=== PATIENT | female | born 1950 | race Hispanic/Latino ===

== ENCOUNTER 2018-10-27 22:23 | Observation (INO) | payer OTHER ==
[~2018-10-27] VITALS: Ht 162.6 cm; Wt 103.6 kg
[2018-10-27] MEDS ORDERED: DILTIAZEM HCL 5 MG/ML 10 ML VIAL IV ONE ×2 (22:37→22:49)
[2018-10-27 22:47] LABS: BASOPHILS % (AUTO) 0.8 % (0.0-5.0); EOSINOPHILS % (AUTO) 3.3 % (0.0-8.0); HEMATOCRIT 41.5 % (36-48); LYMPHOCYTES % (AUTO) 38.4 % (21.0-51.0); MEAN CORPUSCULAR HEMOGLOBIN 29.1 pg (27.0-33.0); MEAN CORPUSCULAR HGB CONC 34.1 g/dL (32.0-36.0); MEAN CORPUSCULAR VOLUME 85.3 fL (79-99); MONOCYTES % (AUTO) 12.9 % (3.0-13.0); NEUTROPHILS % (AUTO) 44.6 % (40.0-77.0); NUCLEATED RED BLOOD CELLS 0.1 % (0.0-0.19); PLATELET COUNT (AUTO) 255 K/uL (130-400); RED BLOOD CELL COUNT(AUTO) 4.86 MIL/uL (4.00-5.50); RED CELL DISTRIBUTION WIDTH 14.3 % (11.0-15.5); WHITE BLOOD COUNT (AUTO) 7.6 K/uL (4.8-10.8)
[2018-10-27] MEDS ORDERED: SODIUM CHLORIDE 0.9% 100 ML IV ONE (22:49)
[2018-10-27 23:00] LABS: CREATININE 0.8 mg/dL (0.5-1.5); POTASSIUM 4.3 mmol/L (3.5-5.1)
[2018-10-27 23:02] LABS: APPEARANCE,URINE Clear (CLEAR); BILIRUBIN,URINE Negative (NEGATIVE); COLOR,URINE Yellow (YELLOW); GLUCOSE, URINE (UA) TRACE mg/dL (NEGATIVE); KETONES,URINE Negative (NEGATIVE); LEUKOCYTE ESTERASE ,URINE Small (NEGATIVE); NITRATE,URINE Negative (NEGATIVE); OCCULT BLOOD,URINE Negative (NEGATIVE); PH,URINE 7.5 (5.0-8.0); PROTEIN,URINE Negative (NEGATIVE); UROBILINOGEN,URINE 0.2 mg/dL (0.2-1.0)
[2018-10-27 23:13] LABS: ALBUMIN 3.8 g/dL (3.5-5.0); BILIRUBIN,TOTAL 0.2 mg/dL (0.2-1.0); MAGNESIUM 1.9 mg/dL (1.80-2.40); THYROID STIMULATING HORMONE 2.65 uIU/mL (0.36-3.74)
[2018-10-27 23:18] LABS: BACTERIA,URINE None Seen /HPF (None Seen); RBC,URINE None Seen /HPF (0-1); SQUAMOUS EPITHELIAL CELL,UR Few /HPF (0-2); WBC,URINE 0-1 /HPF (0-1)
[2018-10-28] MEDS ORDERED: DILTIAZEM HCL 5 MG/ML 10 ML VIAL IV ONE (00:58)
[2018-10-28] MEDS ORDERED: SODIUM CHLORIDE 0.9% 1000ML 1,000 ML IV ONE (02:16)
[2018-10-28] MEDS ORDERED: DIGOXIN 250 MCG/ML 2ML AMP ONE (02:16)
[2018-10-28] MEDS ORDERED: SODIUM CHLORIDE 0.9% 500ML 500 ML IV ONE (03:54)
[2018-10-28] MEDS ORDERED: JANUMET PO SCH (08:00)
[2018-10-28] MEDS: TOUJEO SQ SCH (09:00)
[2018-10-28] MEDS: CALCIUM 600 + VITAMIN D 400 TABLET PO SCH (09:42)
[2018-10-28] MEDS: FISH OIL 1000 MG/CAP PO SCH (09:42)
[2018-10-28] MEDS: FE FUMARATE/FA/MV, MIN COMB#15 1 TAB PO SCH (09:42)
[2018-10-28] MEDS: ASPIRIN 81 MG EC TAB PO SCH (09:42)
[2018-10-28 10:18] LABS: CREATINE KINASE, TOTAL 38 U/L (21-232); MYOGLOBIN 31 ng/mL (10-92); TROPONIN I < 0.04 ng/mL (0.00-0.06)
--- NOTE | 2018-10-28 12:49 | NUR ---
WALKS WITHOUT ANY DIFFICULTY Addendum: 10/28/18 at 1305 by YANNA MANZANARSE RN RN Amended: Links added.
[2018-10-28 12:58] VITALS: BP 136/58
--- NOTE | 2018-10-28 13:01 | NUR ---
PT HAS CELLPHONE, PURSE, ID AND WALLET. PT ALLOW HAS HER CLOTHES, GLASSES Addendum: 10/28/18 at 1305 by YANNA MANZANARES RN RN Amended: Links added.
[2018-10-28 16:00] VITALS: BP 124/54
--- NOTE | 2018-10-28 16:00 | NUR ---
RECEIVED FROM ED VIA STRETCHER ACCOMPANIED BY LATANYA BRICEÑO. PT. [id number], RESP.'S EVEN AND UNLABORED. PLEASANT, LAUGHING. TALKATIVE. DENIES ANY C/O AT THIS TIME. COMPLETE ASSESSMENT DONE. CALL LIGHT WITHIN REACH.
[2018-10-28] MEDS: SITAGLIPTIN PO SCH (17:00)
[2018-10-28] MEDS: METFORMIN PO SCH (17:00)
--- NOTE | 2018-10-28 17:00 | NUR ---
SITTING UP IN BED EATING DINNER W/O C/O. CALL LIGHT WITHIN REACH.
[2018-10-28] MEDS ORDERED: PHARMACY COMMUNICATION MISC SCH (17:15)
[2018-10-28 19:24] VITALS: BP 144/63
[2018-10-28] MEDS ORDERED: ATORVASTATIN CALCIUM 10 MG TABLET PO SCH (21:00)
[2018-10-28 23:35] VITALS: BP 144/71
[2018-10-29 03:59] VITALS: BP 140/71
[2018-10-29 07:43] VITALS: BP 135/68
[2018-10-29] MEDS ORDERED: AEC81 PO (08:10)
[2018-10-29] MEDS ORDERED: UBID50CA23 PO (08:10)
[2018-10-29] MEDS ORDERED: METO-409 PO (08:10)
[2018-10-29] MEDS ORDERED: CALC-910 PO (08:10)
[2018-10-29] MEDS ORDERED: CYAN100099 PO (08:10)
[2018-10-29] MEDS ORDERED: MULT-1250 PO (08:10)
[2018-10-29] MEDS ORDERED: ROSU5TAB11 PO (08:10)
[2018-10-29] MEDS ORDERED: PYRI200T10 PO (08:10)
[2018-10-29] MEDS ORDERED: INSU300I SQ (08:10)
[2018-10-29] MEDS ORDERED: OMEG-125 PO (08:10)
[2018-10-29] MEDS: ASPIRIN 81 MG EC TAB PO SCH (09:40)
[2018-10-29] MEDS: CALCIUM 600 + VITAMIN D 400 TABLET PO SCH (09:40)
[2018-10-29] MEDS: FISH OIL 1000 MG/CAP PO SCH (09:40)
[2018-10-29] MEDS: FE FUMARATE/FA/MV, MIN COMB#15 1 TAB PO SCH (09:45)
[2018-10-29] MEDS: METFORMIN PO SCH (09:46)
[2018-10-29] MEDS: SITAGLIPTIN PO SCH (09:46)
[2018-10-29] MEDS: TOUJEO SQ SCH (09:47)
[2018-10-29 11:31] VITALS: BP 129/74
--- NOTE | 2018-10-29 11:48 | NUR ---
PT CARE Spoke to by phone at 1120 - MD advised of consult and updated on pt's status, plan of care and current med regimen. Orders received. Proposed plan of care explained to pt. Pt wishes to be discharged. Once again, MD updated by phone regarding pt's decision to proceed with discharge. Orders received - refer to EMR.
[2018-10-29] MEDS ORDERED: RIVA20TA PO (11:59)
[2018-10-29] MEDS ORDERED: METO-391 PO (12:00)
--- NOTE | 2018-10-29 12:46 | NUR ---
DISCHARGE MEDICATIONS As per , prescription phoned in xarelto and metoprolol. Pt was advised of addition of xarelto and the change in dose of metoprolol.
--- NOTE | 2018-10-29 13:34 | NUR ---
PATIENT HAS BEEN GIVEN DISCHARGE INSTRUCTIONS. DISCHARGED HOME. RX FOR XARELTO 20 MG PO DAILY AND METOPROLOL SUCC 50MG CALLED INTO PT'S PHARMACY OF CHOICE. DISCUSSED WITH PT INDICATIONS, DOSE, ROUTE, TIME OF EACH MEDICATION. PT STATES SHE HAS TAKEN XARELTO IN THE PAST. ABLE TO VERBALIZE INDICATIONS FOR MEDICATIONS AND S/S TO REPORT TO MD AND WHEN TO SEEK IMMEDIATE MEDICAL CARE. PIV TO RIGHT AND LEFT AC REMOVED WITH CATHETERS INTACT. PT ESCORTED VIA W/C BY YANIV MUÑOZ. F/U APPOINTMENT WITH DR. SAMS TO BE CALLED INTO BY MD OFFICE.
== END 2018-10-29 13:40 | disposition home or self-care (01) ==
LOC: EDH 22:23 → EDHIP 10-28 04:50 → 2DH 10-28 15:42
PROVIDERS: ADMIT Internal Medicine; ATTEND Internal Medicine
DX: I47.1 Supraventricular tachycardia (principal); R55 Syncope and collapse; I95.9 Hypotension, unspecified; E05.90 Thyrotoxicosis, unspecified without thyrotoxic crisis or storm
CPT/HCPCS: 36415 ×2; 71045; 80053; 81001; 82550 ×2; 82948 ×4; 83735; 83874; 83880; 84443; 84484 ×3; 85025; 93005 ×3; 93306; 96372; 99291; G0378 ×33; J1160; J3490 ×3; J7030; J7040